=== PATIENT | male | born 1940 | race Caucasian/White ===

== ENCOUNTER 2016-08-26 11:23 | Emergency (ER) | payer MEDICARE ==
--- NOTE | 2016-08-26 13:13 | UC ---
Shortness of Breath HPI - HPI Summary HPI Summary: PT HAS HAD CHRONIC COUGH FOR 2-3 YEARS. PAST FEW WEEKS IT HAS GOTTEN WORSE. LAST NIGHT FELT SLIGHTLY SOB AND HOME O2 MONITOR SAID 91%. CALLED CUSTOMER SERVICE SALES CONSULTANT WHO ADVISED TO GO TO ER. PT DID NOT WANT TO GO. CAME HERE TODAY INSTEAD. HAS APPT WITH CUSTOMER SERVICE SALES CONSULTANT (DR. ORELLANA) THIS AFTERNOON. DENIES FEVER OR RECENT ILLNESS. - History of Current Complaint Chief Complaint: UCRespiratory Stated Complaint: COUGH Time Seen by Provider: 08/26/16 12:43 Hx Obtained From: Patient Onset/Duration: Gradual Onset, Lasting Weeks, Still Present Timing: Constant Current Severity: Moderate Dyspnea At: Exertion Alleviating Factors: Nothing Associated Signs & Symptoms: Positive: Cough (Nonproductive). Negative: Wheezing, Chest Pain w/Cough, Fever, Chills, Diaphoresis, Nasal Congestion, Dizzy, Calf Pain/Swelling, Edema - Allergy/Home Medications Allergies/Adverse Reactions: Allergies Allergy/AdvReac Type Severity Reaction Status Date / Time Prochlorperazine Allergy Severe Agitation Verified 08/26/16 11:49 [From Compazine] Amoxicillin Allergy Rash Verified 08/26/16 11:49 PMH/Surg Hx/FS Hx/Imm Hx Cardiovascular History Of: Denies: Cardiac Disorders, Hypertension Respiratory History Of: Reports: Asthma, Bronchitis Denies: COPD GI/ History Of: Reports: Gastroesophageal Reflux Neurological History Of: Reports: Migraine - Surgical History Surgical History: None Surgery Procedure, Year, and Place: pt denies - Family History Family History: CHRONIC BRONCHIAL COUGH - MOM - Social History Alcohol Use: None Substance Use Type: None Smoking Status (MU): Never Smoked Tobacco - Immunization History Most Recent Influenza Vaccination: utd Most Recent Tetanus Shot: utd Most Recent Pneumonia Vaccination: utd Review of Systems Constitutional: Negative Respiratory: Shortness Of Breath, Cough Cardiovascular: Negative Gastrointestinal: Negative All Other Systems Reviewed And Are Negative: Yes Physical Exam Triage Information Reviewed: Yes Appearance: Well-Appearing, No Pain Distress, Well-Nourished Vital Signs: Initial Vital Signs Temp 98.9 F 08/26/16 11:33 Pulse 80 08/26/16 11:33 Resp 18 08/26/16 11:33 BP 142/76 08/26/16 11:33 Pulse Ox 100 08/26/16 11:33 Vital Signs Reviewed: Yes Eyes: Positive: Conjunctiva Clear ENT: Positive: Hearing grossly normal Neck: Positive: Supple, Nontender, No Lymphadenopathy Respiratory: Positive: Lungs clear, No respiratory distress, No accessory muscle use, Decreased breath sounds - MILDLY DECREASED DIFFUSELY, Other: - PERSISTENT DRY COUGH Cardiovascular Exam: Normal Abdomen Description: Positive: Soft Musculoskeletal: Positive: No Edema Neurological: Positive: Alert Psychological: Positive: Age Appropriate Behavior Skin: Negative: rashes Diagnostics - Radiology CXR Xray Interpretation: No Acute Changes Radiology Interpretation Completed By: Radiologist Shortness of Breath Dx - Differential Dx/Diagnosis Provider Diagnoses: CHRONIC COUGH Discharge - Discharge Plan Condition: Stable Disposition: HOME Patient Education Materials: Chronic Cough (ED) Referrals: Jones Howard MD [Primary Care Provider] - If Needed Zaida Orellana MD [Medical Doctor] - (KEEP YOUR APPT TODAY AT 3:20PM) Additional Instructions: YOUR CHEST XRAY TODAY WAS UNREMARKABLE. YOUR OXYGEN SATURATION WAS 100%. KEEP YOUR FOLLOW-UP APPT WITH YOUR CUSTOMER SERVICE SALES CONSULTANT DR. ORELLANA TODAY AT 3:20PM.
--- NOTE | 2016-08-26 13:38 | RAD ---
HISTORY: Chronic cough COMPARISONS: August 08, 2016 VIEWS: 2: Frontal dual-energy and lateral views of the chest. FINDINGS: CARDIOMEDIASTINAL SILHOUETTE: The cardiomediastinal silhouette is normal. RENATO: The renato are normal. PLEURA: The costophrenic angles are sharp. No pleural abnormalities are noted. LUNG PARENCHYMA: There is hyperinflation with flattening of the diaphragm and expansion of the AP diameter of the chest. ABDOMEN: The upper abdomen is clear. There is no subphrenic gas. BONES AND SOFT TISSUES: Degenerative changes are noted along the spine OTHER: None. IMPRESSION: NO ACTIVE CARDIOPULMONARY DISEASE.
[2016-08-26 13:53] VITALS: BP 160/90
== END 2016-08-26 13:50 | disposition home or self-care (01) ==
LOC: UCEAST 11:23
DX: R05 Cough (principal); J45.909 Unspecified asthma, uncomplicated; K21.9 Gastro-esophageal reflux disease without esophagitis; G43.909 Migraine, unspecified, not intractable, without status migrainosus; Z88.3 Allergy status to other anti-infective agents; Z87.09 Personal history of other diseases of the respiratory system
CPT/HCPCS: 71020; 99211; G0463

== ENCOUNTER 2016-08-29 09:03 | Emergency (ER) | payer MEDICARE ==
[2016-08-29 10:15] LABS: Hematocrit 39 % (42-52); Mean Corpuscular HGB Conc 33 g/dl (31-36); Mean Corpuscular Hemoglobin 30 pg (27-31); Mean Corpuscular Volume 90 fL (80-94); Mean Platelet Volume 7 um3 (7.4-10.4); Red Cell Distribution Width 13 % (10.5-15); White Blood Count 7.6 10^3/ul (3.5-10.8)
--- NOTE | 2016-08-29 10:41 | RAD ---
INDICATION: Cough and syncope. COMPARISON: Comparison is made with a prior study from August 26, 2016. TECHNIQUE: A portable view of the chest was obtained. FINDINGS: Cardiac and mediastinal contours appear to be within normal limits. The lungs are clear. No pleural effusion is seen. IMPRESSION: NO EVIDENCE FOR ACUTE DISEASE.
[2016-08-29] MEDS ORDERED: NS 0.9% 1000 ML* 1,000 ML IV ONE (10:52)
[2016-08-29 10:58] LABS: Urine Bilirubin Negative (Negative); Urine Glucose Negative (Negative); Urine Nitrite Negative (Negative)
[2016-08-29 12:03] VITALS: BP 149/79
[2016-08-29 12:20] LABS: Albumin 3.6 g/dL (3.2-5.2); BUN/Creatinine Ratio 11.8 (8-20); Calcium 9.3 mg/dL (8.6-10.3); EGFR African American 51.3 (>60); EGFR Non-African American 39.9 (>60); Globulin 3.1 g/dL (2-4); Potassium 3.9 mmol/L (3.5-5.0); Total Bilirubin 0.6 mg/dL (0.2-1.0); Total Protein 6.7 g/dL (6.4-8.9)
[2016-08-29] MEDS ORDERED: Iodixanol* (CONTRAST) 320 MG/ML 100 ML SDV IV ONE (12:28)
--- NOTE | 2016-08-29 13:04 | RAD ---
INDICATION: Syncope and cough. COMPARISON: There are no prior studies available for comparison. TECHNIQUE: Contiguous axial sections of the brain were obtained from the skull base to the vertex without contrast. FINDINGS: The ventricles, cisterns and sulci are enlarged consistent with age-related atrophy. There are small areas of decreased density in the subcortical and periventricular white matter suggestive of mild chronic small vessel ischemic changes. No other focal abnormality or mass effect is seen. There is no evidence for hemorrhage. No significant focal osseous abnormality is seen. The visualized portion of the paranasal sinuses and mastoid air cells appear clear. IMPRESSION: NO EVIDENCE FOR GROSS ACUTE INFARCT, MASS EFFECT OR HEMORRHAGE.
--- NOTE | 2016-08-29 13:12 | RAD ---
INDICATION: Chest pain. Short of breath. Evaluate for pulmonary embolus. COMPARISON: None TECHNIQUE: Axial source images were obtained from the thoracic inlet to the hemidiaphragms following administration of [address] angiographic technique was utilized. Coronal and sagittal reconstructed images were acquired. CHEST FINDINGS: Neck/thyroid: The visualized neck to include the thyroid appear normal. Chest wall: There are no acute abnormalities of the bony thorax or chest wall. There is no left seventh rib fracture. There is no supraclavicular, infraclavicular, or axillary lymphadenopathy. Lungs : There are several tiny, rounded, noncalcified subcentimeter pulmonary parenchymal nodules on the right. These are likely chronic inflammatory foci but can be reevaluated with noncontrast CT follow-up imaging in 6 months to assess for stability.. The pulmonary interstitium appears normal. There are no endobronchial lesions. Cardiomediastinal structures: There is no CT evidence of acute pulmonary embolic disease. The heart is normal in size. There is no pericardial effusion. There is no evidence of aortic aneurysm or dissection. There is uncoiling with ectasia of the thoracic aorta. There is no mediastinal or hilar adenopathy. The esophagus appears normal. Pleura : There are no pleural-based masses or effusions. Other: None. IMPRESSION: NO CT EVIDENCE OF ACUTE PULMONARY EMBOLIC DISEASE. SUSPECT RIGHT-SIDED CHRONIC INFLAMMATORY FOCI. SUGGEST FOLLOW-UP OUTLINED ABOVE.
--- NOTE | 2016-08-29 16:48 | ED ---
Isaiah Malhotra Billy, scribed for Jonah Rowell MD on 08/29/16 at 1042 . Syncope/Near Syncope - HPI Summary HPI Summary: Patient is a 76 year-old male coming to [facility] with his presenting with two syncopal episodes earlier this morning at 0200 and 0400. Patient does not recall if he was lightheaded or dizzy immediately prior to the syncopal episodes. Denies any chest pain or shortness of breath. Denies incontinence or tongue-biting. Patient hit the left eyebrow on the floor after the first syncopal episode but he denies any headache at this time. Denies any incidence of weakness or slurred speech. In fact, he states that he feels completely normal other than a "chronic allergy cough." He recently started new medication for the cough, as prescribed by his rn sane. He reports that he had been coughing before the first syncopal episode and believes that the syncope may have been brought on by the cough. Denies any prior syncopal episodes. Denies any recent illness. - History Of Current Complaint Chief Complaint: EDSyncope Time Seen by Provider: 08/29/16 10:29 Hx Obtained From: Patient Onset/Duration: Sudden Onset Context: Unwitnessed Activity At Onset: At Rest - standing Associated Head Trauma: Yes Aggravating Factor(s): Nothing Alleviating Factor(s): Spontaneous Resolution - Allergies/Home Medications Allergies/Adverse Reactions: Allergies Allergy/AdvReac Type Severity Reaction Status Date / Time Prochlorperazine Allergy Severe Agitation Verified 08/26/16 11:49 [From Compazine] Amoxicillin Allergy Rash Verified 08/26/16 11:49 PMH/Surg Hx/FS Hx/Imm Hx Endocrine/Hematology History: Denies: Hx Diabetes Cardiovascular History: Reports: Other Cardiovascular Problems/Disorders - MITROVALVE REGUR Denies: Hx Atrial Fibrillation, Hx Hypertension Respiratory History: Reports: Hx Asthma - DAILY INHALERS/NEBULIZER NEEDED Denies: Hx Chronic Obstructive Pulmonary Disease (COPD), Other Respiratory Problems/Disorders Neurological History: Reports: Hx Migraine - Cancer History Cancer Type, Location and Year: pt denies - Surgical History Surgery Procedure, Year, and Place: pt denies Infectious Disease History: Denies: Hx Clostridium Difficile, Hx Hepatitis, Hx Human Immunodeficiency Virus (HIV), Hx of Known/Suspected MRSA, Hx Shingles, Hx Tuberculosis, Hx Known/ Suspected VRE, Hx Known/Suspected VRSA, History Other Infectious Disease, Traveled Outside the [place] in Last 30 Days - Family History Known Family History: Positive: Respiratory Disease - CHRONIC BRONCHIAL COUGH - MOM - Social History Alcohol Use: None Substance Use Type: Reports: None Hx Tobacco Use: Yes Smoking Status (MU): Former Smoker - smoked for a few years as a teenager Review of Systems Negative: Palpitations, Chest Pain Positive: Cough. Negative: Shortness Of Breath Negative: incontinence Positive: Syncope. Negative: Weakness, Paresthesia, Numbness All Other Systems Reviewed And Are Negative: Yes Physical Exam - Summary Physical Exam Summary: The patient is well-nourished in no acute distress and in no acute pain. The skin is warm and dry and skin color reflects adequate perfusion. There is a small, superficial laceration above the left orbit. HEENT: The pupils are equal and reactive. The conjunctivae are clear and without drainage. Nares are patent and without drainage. Mouth reveals moist mucous membranes and the throat is without erythema and exudate. The external ears are intact. The ear canals are patent and without drainage. The tympanic membranes are intact. Neck is supple with full range of motion and non-tender. There are no carotid bruits. There is no neck vein distension. Respiratory: Chest is non-tender. Lungs are clear to auscultation and breath sounds are symmetrical and equal. Cardiovascular: Hear is regular rate and rhythm. There is no murmur or rub auscultated. There is no peripheral edema and pulses are symmetrical and equal. Abdomen: The abdomen is soft and non-tender. There are normal bowel sounds heard in all four quadrants and there is no organomegaly palpated. Musculoskeletal: There is no back pain noted. Extremities are non-tender with full range of motion. There is good capillary refill. There is no peripheral edema or calf tenderness elicited. Neurological: Patient is alert and oriented to person, place and time. The patient has symmetrical motor strength in all four extremities. No facial droop. Cranial nerves are grossly intact. Deep tendon reflexes are symmetrical and equal in all four extremities. Psychiatric: The patient has an appropriate affect and does not exhibit any anxiety or depression. Triage Information Reviewed: Yes Vital Signs On Initial Exam: Initial Vitals Temp Pulse Resp BP 97.2 F 65 16 137/75 08/29/16 09:07 08/29/16 09:07 08/29/16 09:07 08/29/16 09:07 Vital Signs Reviewed: Yes - [place] Coma Scale Coma Scale Total: 15 Diagnostics - Vital Signs Vital Signs Temp Pulse Resp BP Pulse Ox 08/29/16 10:00 71 13 97 08/29/16 09:21 81 15 98 08/29/16 09:20 79 14 98 08/29/16 09:07 97.2 F 65 16 137/75 - Laboratory Lab Results: Lab Results 08/29/16 08/29/16 Range/Units 09:25 09:25 WBC 7.6 (3.5-10.8) 10^3/ul RBC 4.30 (4.0-5.4) 10^6/ul Hgb 13.0 L (14.0-18.0) g/dl Hct 39 L (42-52) % MCV 90 (80-94) fL MCH 30 (27-31) pg MCHC 33 (31-36) g/dl RDW 13 (10.5-15) % Plt Count 201 (150-450) 10^3/ul MPV 7 L (7.4-10.4) um3 Neut % (Auto) 56.6 (38-83) % Lymph % (Auto) 32.5 (25-47) % [place] % (Auto) 8.5 (1-9) % Eos % (Auto) 2.0 (0-6) % Baso % (Auto) 0.4 (0-2) % Absolute Neuts (auto) 4.3 (1.5-7.7) 10^3/ul Absolute Lymphs (auto) 2.5 (1.0-4.8) 10^3/ul Absolute Monos (auto) 0.6 (0-0.8) 10^3/ul Absolute Eos (auto) 0.1 (0-0.6) 10^3/ul Absolute Basos (auto) 0 (0-0.2) 10^3/ul Absolute Nucleated RBC 0 10^3/ul Nucleated RBC % 0 Magnesium 2.0 (1.9-2.7) mg/dL Total Creatine Kinase 153 (10-223) U/L CK-MB (CK-2) 4.6 (0.6-6.3) ng/mL Troponin I 0.00 (<0.04) ng/mL Result Diagrams: 08/29/16 09:25 08/29/16 09:25 Lab Statement: Any lab studies that have been ordered have been reviewed, and results considered in the medical decision making process. - Radiology CXR Xray Interpretation: No Acute Changes Radiology Interpretation Completed By: Radiologist - CT brain CT Interpretation: No Acute Changes CT Interpretation Completed By: Radiologist CTA chest CT Interpretation Completed By: Radiologist - NO CT EVIDENCE OF ACUTE PULMONARY EMBOLIC DISEASE. SUSPECT RIGHT-SIDED CHRONIC INFLAMMATORY FOCI. SUGGEST FOLLOW- UP OUTLINED ABOVE. - EKG 0913 Cardiac Rate: NL - 82 bpm EKG Rhythm: Sinus Rhythm ST Segment: Non-Specific EKG Interpretation: NSR 82 bpm, normal axis, questional Q-waves in III and aVF Re-Evaluation - Re-Evaluation First Eval Re-Evaluation Time: 13:40 Comment: Labs and imaging reviewed. Patient wishes to be discharged. Course/Dx Assessment/Plan: 76 y/o male to the ED for evaluation of syncope. In the ED course, patient was hydrated with IV fluids. CXR, CT of the brain, and CTA of the neck were all read as negative for acute findings by radiology. Labs reviewed, Hgb of 13, Hct of 39. These findings were reviewed and discussed with the patient, who was [place] to stay [place] [facility] [place]. He will be discharged home to follow up with PCP and Dr. Brown (GI), and he was advised to keep his appointment with his purchasing intern Dr. Mcdowell. He will be given prescriptions of tessalon and robitussin for his cough. - Diagnoses Differential Diagnosis/HQI/PQRI: Positive: Coronary Artery Disease, Dysrhythmia , Hypovolemia, Myocardial Infarction, Vasovagal Episode Provider Diagnoses: Anemia, Syncope, Chronic cough Discharge - Discharge Plan Condition: Stable Disposition: HOME Prescriptions: Benzonatate CAP* [Tessalon 100 MG CAP*] 100 mg PO TID #30 cap guaiFENesin/CODIEN 100MG-10MG* [Robitussin AC 100Mg-10Mg*] 10 ml PO Q4H PRN # 120 udc MDD 60 ml PRN Reason: cough Patient Education Materials: Anemia (ED), Chronic Cough (ED), Syncope (ED) Referrals: Jones Howard MD [Primary Care Provider] - Naman Brown MD [Medical Doctor] - Additional Instructions: FOLLOW UP WITH DR. MCDOWELL SCHEDULED. ADDITIONALLY, FOLLOW UP WITH YOUR PRIMARY CARE PROVIDER WELL DR. BROWN (GASTROENTEROLOGY). The documentation as recorded by the Isaiah weldon Billy accurately reflects the service I personally performed and the decisions made by me, Jonah Rowell MD.
== END 2016-08-29 14:17 | disposition home or self-care (01) ==
LOC: ED 09:03
DX: R42 Dizziness and giddiness (principal); D64.9 Anemia, unspecified; R05 Cough; R55 Syncope and collapse; Z87.891 Personal history of nicotine dependence
CPT/HCPCS: 36415; 70450; 71010; 71275; 80053; 81003; 82550; 82553; 83735; 84484; 85025; 93005; 99283; Q9967

== ENCOUNTER 2016-11-19 19:10 | Emergency (ER) | payer MEDICARE ==
[2016-11-19 19:18] VITALS: BP 106/67
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
== END 2016-11-19 19:35 | disposition home or self-care (01) ==
LOC: UCEAST 19:10
DX: S50.361A Insect bite (nonvenomous) of right elbow, initial encounter (principal); W57.XXXA Bitten or stung by nonvenomous insect and other nonvenomous arthropods, initial encounter; Y93.9 Activity, unspecified; Y92.9 Unspecified place or not applicable; J45.909 Unspecified asthma, uncomplicated; Z88.1 Allergy status to other antibiotic agents; Z87.891 Personal history of nicotine dependence
CPT/HCPCS: 99212; G0463

== ENCOUNTER 2017-08-06 18:45 | Emergency (ER) | payer MEDICARE ==
[2017-08-06 19:05] VITALS: BP 118/76
[2017-08-06] MEDS ORDERED: Tetan/Diph/Pertus SYR(Tdap)* 0.5 ML SYR(BOOSTRIX) use SYR IM ONE (19:12)
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
== END 2017-08-06 19:26 | disposition home or self-care (01) ==
LOC: UCEAST 18:45
DX: S50.811A Abrasion of right forearm, initial encounter (principal); W55.03XA Scratched by cat, initial encounter; Y93.9 Activity, unspecified; Y92.9 Unspecified place or not applicable; Z23 Encounter for immunization; I34.0 Nonrheumatic mitral (valve) insufficiency; J45.909 Unspecified asthma, uncomplicated; G43.909 Migraine, unspecified, not intractable, without status migrainosus; Z88.1 Allergy status to other antibiotic agents; Z87.891 Personal history of nicotine dependence
CPT/HCPCS: 90471; 90715; 99212; G0463

== ENCOUNTER 2017-08-17 09:20 | Emergency (ER) | payer MEDICARE ==
[2017-08-17 09:31] VITALS: BP 137/69
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
== END 2017-08-17 10:17 | disposition home or self-care (01) ==
LOC: UCEAST 09:20
DX: H61.22 Impacted cerumen, left ear (principal); Z88.3 Allergy status to other anti-infective agents; Z88.8 Allergy status to other drugs, medicaments and biological substances
CPT/HCPCS: 99212; G0463

== ENCOUNTER → 2018-02-18 07:47 | Emergency (ER) | payer MEDICARE ==
[~2018-02-18 07:47] MED LIST: HYDROcodone/ACETAMIN 5-325 MG* 1 TAB PO ONE
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
[2018-02-18 08:32] LABS: ABS Basophils 0.1 10^3/ul (0-0.2); ABS Eosinophils 0.4 10^3/ul (0-0.6); ABS Lymphocytes 1.6 10^3/ul (1.0-4.8); ABS Monocytes 0.4 10^3/ul (0-0.8); ABS Neutrophils 3.9 10^3/ul (1.5-7.7); ABS Nucleated RBC 0 10^3/ul; Eosinophil % 5.6 % (0-6); Hematocrit 40 % (42-52); Hemoglobin 13.6 g/dl (14.0-18.0); Lymphocyte % 25.4 % (25-47); Mean Corpuscular HGB Conc 34 g/dl (31-36); Mean Corpuscular Hemoglobin 31 pg (27-31); Mean Corpuscular Volume 90 fL (80-94); Mean Platelet Volume 6.8 um3 (7.4-10.4); Nucleated Red Blood Cells % 0.1; Platelet Count 210 10^3/ul (150-450); Red Blood Count 4.45 10^6/ul (4.00-5.40); Red Cell Distribution Width 13 % (10.5-15); White Blood Count 6.4 10^3/ul (3.5-10.8)
[2018-02-18 08:48] LABS: EGFR Non-African American 48.2 (>60)
[2018-02-18 08:51] VITALS: BP 153/81
--- OUTSIDE RECORDS SUMMARY | 2018-02-18 08:55 | XMS REPORT ---
:1940 External Reference #:[id number] Author Organization [facility] Address [address] [place] [address] Phone [phone] Care Team Providers Name Role Phone Jones Howard M.D. Care Team Information Intelligence Engineer Unavailable Jones Howard M.D. Primary Care Physician Unavailable Payers Type Date Identification Numbers Payment Provider Subscriber Commercial Effective: Policy Number: [id number] / Of LYLE Chaidez 2012 PayID: [id number] [address] [address] [place] [address] Problems Date Description Provider Status Onset: 08/25/2013 Cough Zaida Stout M.D. Active Onset: 08/25/2013 Allergic rhinitis Zaida Stout M.D. Active Onset: 08/25/2013 Allergic rhinitis Zaida Stout M.D. Active Onset: 08/25/2013 Extrinsic asthma without status Zaida Stout M.D. Active asthmaticus Onset: 09/05/2016 Uncomplicated moderate persistent Zaida Stout M.D. Active asthma Onset: 08/08/2016 Allergic rhinitis due to pollen Zaida Stout M.D. 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 Home Environment Does not have an air conditioner Home Environment Stairs are present Home Environment Finished Basement partially Home Environment Negative For The basement is moldy Home Environment The basement is dry Home Environment Negative For Musty Basement Home Environment Cotton Comforter Home Environment Mattress is 2 years old Home Environment Regular Mattress Home Environment Pillows are polyester Home Environment Mattress is encased in an allergy proof case Home Environment Pillows are encased in an allergy proof case Home Environment Does not use a dehumidifier Home Environment There are draperies in the home Home Environment The home is not nate Home Environment The floors are wood Home Environment Payne Heat Home Environment The floors are carpeted Home Environment [place] Home Environment Water Source: Well Smoke-Free Home is smoke-free Pets 1 cat Pets Negative For Animals sleep in bedroom 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 4 days Albuterol Sulfate 01/22 Active Nebulizer (2.5mg/3M 75ml 1 neb J30.1 L) 0.083% inhalation Pieretti, every 4 M.D. hours as needed Montelukast 12/17 Active Tablets 10mg 30tab 1 tab by J30.1 Alanis s mouth every Arnie, night at [employer] bedtime Albuterol Sulfate 08/26 Active Nebulizer (2.5mg/3M 75ml 1 neb R05 Susan L) 0.083% inhalation Fan-Jam every 4 zane, hours as [employer] needed Astepro 05/12 Active Solution 0.15% 30uni 2 Alanis ts intranasal Arnie, every day [employer] Omeprazole 12/08 Active Capsules 20mg 30cap [address] aleman by mouth Argelia, everyday, M.D. at least 30 minutes prior to 1st meal of the day. Levocetirizine 07/10 Active Tablets 5mg 30tab Take 1 J30.9 Alanis Dihydrochloride /2014 s Tablet By Arnie, Mouth AT [facility]- Bedtime as Needed Patada12/25 Active Solution 0.2% 1unit Instill One Zaida s Drop In Pieretti, Both Eyes M.D. once daily as Needed Tylenol PM Extra Active Tablets 500-25mg Unknown Strength Ventolin HFA Active Aerosol 108(90Bas 8gm 2 puffs Susan e) inhalation Fan-Jam mcg/Act every 4 zane, hours [employer] Flunisolide Active Solution 25mcg/Act 25ml 2 sprays in Zaida (0.025%) each Pieretti, nostril M.D. daily Ranitidine HCL Active Tablets 150mg 1 by mouth twice a day Metoprolol Active Tablets ER 50mg Unknown Succinate ER 24HR Lasix Active Tablets 20mg Unknown Atorvastatin Active Tablets 20mg Unknown Calcium Symbicort Active Aerosol 80-4.5mcg Kheti, / /Act Dayna Spangler Medications Administered in Office Medication Date Status Form Strength Qnty SIG Indications Ordering Provider Injection 08/22/19 Administered Injection Allergy 17 Injection Injection 08/16/19 Administered Injection Allergy 17 Injection Injection 08/07/19 Administered Injection Allergy 17 Injection Injection 07/31/19 Administered Injection Allergy 17 Injection Injection 07/24/19 Administered Injection Allergy 17 Injection Injection 07/17/19 Administered Injection Allergy 17 Injection Injection 07/03/19 Administered Injection Allergy 17 Injection Injection 06/23/19 Administered Injection Allergy 17 Injection Injection 06/19/19 Administered Injection Allergy 17 Injection Injection 06/12/19 Administered Injection Allergy 17 Injection Injection 06/04/19 Administered Injection Allergy 17 Injection Injection 05/30/20 Administered Injection Allergy 16 Injection Injection 05/22/20 Administered Injection Allergy 16 Injection Injection 05/16/20 Administered Injection Allergy 16 Injection Injection 05/08/20 Administered Injection Allergy 16 Injection Injection 04/28/20 Administered Injection Allergy 16 Injection Injection 04/21/20 Administered Injection Allergy 16 Injection Injection 04/16/20 Administered Injection Allergy 16 Injection Injection 04/09/20 Administered Injection Allergy 16 Injection Injection 03/31/20 Administered Injection Allergy 16 Injection Injection 03/24/20 Administered Injection Allergy 16 Injection Injection 03/17/20 Administered Injection Allergy 16 Injection Injection 03/14/20 Administered Injection Allergy 16 Injection Immunizations CPT Code Status Date Vaccine Lot # 64374 Given 03/01/2014 Influenza Vaccine 36090 Given 01/30/2014 Influenza Vaccine 91880 Given 01/30/2013 Influenza Vaccine 75917 Given 06/01/2011 Pneumococcal Vaccine 93967 Given 05/01/2009 Pneumococcal Vaccine 11674 Given Unknown Pneumococcal Vaccine 48148 Given Unknown Pneumococcal Vaccine 74118 Given Unknown Influenza Vaccine 55756 Given Unknown Influenza Vaccine 69739 Given Unknown Influenza Vaccine Vital Signs Date Vital Result Comment 01/22/2018 Height 67 inches 5'7" patient stated Weight 170.00 lb Weight in kg's 77.112 Respiratory Rate 20 /min Heart Rate 65 /min O2 % BldC Oximetry 97 % BP Systolic 124 mmHg BP Diastolic 69 mmHg Asthma Control Test 20 BMI (Body Mass Index) 26.6 kg/m2 12/17/2017 Height 67 inches 5'7" patient stated Weight 168.00 lb Weight in kg's 76.205 Respiratory Rate 20 /min Heart Rate 65 /min Body Temperature 97.3 F O2 % BldC Oximetry 96 % BP Systolic 121 mmHg BP Diastolic 71 mmHg Asthma Control Test 15 BMI (Body Mass Index) 26.3 kg/m2 09/29/2017 Height 67 inches 5'7" patient stated Weight 165.00 lb Weight in kg's 74.844 Respiratory Rate 18 /min Heart Rate 64 /min O2 % BldC Oximetry 96 % BP Systolic 126 mmHg BP Diastolic 74 mmHg Asthma Control Test 24 BMI (Body Mass Index) 25.8 kg/m2 06/02/2017 Height 67 inches 5'7" patient stated Weight 166.00 lb Weight in kg's 75.298 Respiratory Rate 20 /min Heart Rate 70 /min O2 % BldC Oximetry 95 % BP Systolic 124 mmHg BP Diastolic 75 mmHg Asthma Control Test 24 BMI (Body Mass Index) 26.0 kg/m2 02/27/2017 Height 65.75 inches 5'5.75" Weight 167.00 lb Weight in kg's 75.751 Respiratory Rate 20 /min Heart Rate 60 /min O2 % BldC Oximetry 96 % BP Systolic 123 mmHg BP Diastolic 77 mmHg Asthma Control Test 22 BMI (Body Mass Index) 27.2 kg/m2 11/14/2016 Height 65.75 inches 5'5.75" Weight 163.00 lb Weight in kg's 73.937 Respiratory Rate 16 /min Heart Rate 64 /min O2 % BldC Oximetry 98 % BP Systolic 134 mmHg BP Diastolic 78 mmHg Asthma Control Test 22 BMI (Body Mass Index) 26.5 kg/m2 09/05/2016 Height 65.75 inches 5'5.75" Weight 165.00 lb Weight in kg's 74.844 Respiratory Rate 20 /min Heart Rate 75 /min O2 % BldC Oximetry 97 % BP Systolic 130 mmHg BP Diastolic 78 mmHg BMI (Body Mass Index) 26.8 kg/m2 08/26/2016 Height 65.75 inches 5'5.75" Weight 164.00 lb Weight in kg's 74.390 Respiratory Rate 20 /min Heart Rate 72 /min Body Temperature 97.8 F O2 % BldC Oximetry 97 % BP Systolic 144 mmHg BP Diastolic 86 mmHg BMI (Body Mass Index) 26.7 kg/m2 08/15/2016 Height 65.75 inches 5'5.75" Weight 165.00 lb Weight in kg's 74.844 Respiratory Rate 16 /min Heart Rate 59 /min O2 % BldC Oximetry 98 % BP Systolic 144 mmHg BP Diastolic 87 mmHg BMI (Body Mass Index) 26.8 kg/m2 08/08/2016 Height 65.75 inches 5'5.75" Weight 165.00 lb Weight in kg's 74.844 Respiratory Rate 18 /min Heart Rate 63 /min O2 % BldC Oximetry 97 % BP Systolic 140 mmHg BP Diastolic 80 mmHg BMI (Body Mass Index) 26.8 kg/m2 03/07/2016 Height 65.75 inches 5'5.75" Weight 167.00 lb Weight in kg's 75.751 Respiratory Rate 20 /min Heart Rate 72 /min O2 % BldC Oximetry 98 % BP Systolic 134 mmHg BP Diastolic 84 mmHg BMI (Body Mass Index) 27.2 kg/m2 02/26/2016 Height 65.75 inches 5'5.75" Weight 167.00 lb Weight in kg's 75.751 Respiratory Rate 16 /min Heart Rate 66 /min O2 % BldC Oximetry 98 % BP Systolic 133 mmHg BP Diastolic 83 mmHg BMI (Body Mass Index) 27.2 kg/m2 07/03/2015 Height 65.75 inches 5'5.75" Weight 167.00 lb Weight in kg's 75.751 Respiratory Rate 18 /min Heart Rate 68 /min O2 % BldC Oximetry 97 % BP Systolic 146 mmHg BP Diastolic 91 mmHg BMI (Body Mass Index) 27.2 kg/m2 05/18/2015 Height 65.75 inches 5'5.75" Weight 168.00 lb Weight in kg's 76.205 Respiratory Rate 16 /min Heart Rate 67 /min O2 % BldC Oximetry 98 % BP Systolic 152 mmHg BP Diastolic 86 mmHg BMI (Body Mass Index) 27.3 kg/m2 12/08/2014 Height 66 inches 5'6" Weight 169.00 lb Weight in kg's 76.658 Respiratory Rate 16 /min Heart Rate 57 /min O2 % BldC Oximetry 97 % BP Systolic 129 mmHg BP Diastolic 79 mmHg BMI (Body Mass Index) 27.3 kg/m2 06/06/2014 Height 66 inches 5'6" Weight 167.00 lb Weight in kg's 75.751 Respiratory Rate 16 /min Heart Rate 64 /min O2 % BldC Oximetry 96 % BP Systolic 120 mmHg BP Diastolic 78 mmHg BMI (Body Mass Index) 27.0 kg/m2 05/16/2014 Height 66 inches 5'6" Weight 165.00 lb Weight in kg's 74.844 Respiratory Rate 16 /min Heart Rate 54 /min O2 % BldC Oximetry 98 % BP Systolic 130 mmHg BP Diastolic 90 mmHg BMI (Body Mass Index) 26.6 kg/m2 03/20/2014 Height 66.25 inches 5'6.25" Weight 161.00 lb Weight in kg's 73.030 Respiratory Rate 18 /min Heart Rate 90 /min O2 % BldC Oximetry 97 % BP Systolic 124 mmHg BP Diastolic 82 mmHg BMI (Body Mass Index) 25.8 kg/m2 03/17/2014 Height 66.25 inches 5'6.25" Weight 161.00 lb Weight in kg's 73.030 Respiratory Rate 18 /min Heart Rate 71 /min O2 % BldC Oximetry 97 % BP Systolic 130 mmHg BP Diastolic 82 mmHg BMI (Body Mass Index) 25.8 kg/m2 02/17/2014 Height 66.25 inches 5'6.25" Weight 165.00 lb Weight in kg's 74.844 Respiratory Rate 16 /min Heart Rate 61 /min O2 % BldC Oximetry 98 % BP Systolic 130 mmHg BP Diastolic 78 mmHg BMI (Body Mass Index) 26.4 kg/m2 11/04/2013 Height 66.25 inches 5'6.25" Weight 166.00 lb Weight in kg's 75.298 Respiratory Rate 18 /min Heart Rate 61 /min O2 % BldC Oximetry 97 % BP Systolic 126 mmHg BP Diastolic 74 mmHg BMI (Body Mass Index) 26.6 kg/m2 05/06/2013 Height 65.75 inches 5'5.75" Weight 168.00 lb Weight in kg's 76.205 Respiratory Rate 16 /min Heart Rate 55 /min O2 % BldC Oximetry 99 % BP Systolic 126 mmHg BP Diastolic 60 mmHg BMI (Body Mass Index) 27.3 kg/m2 04/06/2013 Height 66 inches 5'6" Weight 165.00 lb Weight in kg's 74.844 Heart Rate 62 /min O2 % BldC Oximetry 98 % BP Systolic 122 mmHg BP Diastolic 58 mmHg BMI (Body Mass Index) 26.6 kg/m2 Results Description No Information Procedures Date CPT Code Description Status 01/22/2018 69804 Ippb Completed 01/22/2018 35763 Pre PFT Completed 12/17/2017 80817 Pre PFT Completed 09/29/2017 62425 Pre PFT Completed 06/02/2017 23697 Pre PFT Completed 02/27/2017 94971 Pre PFT Completed 11/14/2016 79187 Pre PFT Completed 09/05/2016 43946 Pre PFT Completed 08/26/2016 37444 Pulmonary Function Test Completed 08/21/2016 34967 Injection Completed 08/15/2016 70627 Injection Completed 08/08/2016 39188 Ippb Completed 08/06/2016 88377 Injection Completed 07/30/2016 16527 Injection Completed 07/24/2016 04244 Injection Completed 07/17/2016 24450 Injection Completed 07/03/2016 02811 Injection Completed 06/23/2016 11488 Injection Completed 06/19/2016 82664 Injection Completed 06/12/2016 33234 Injection Completed 06/04/2016 06907 Injection Completed 05/30/2016 08713 Injection Completed 05/22/2016 02348 Injection Completed 05/16/2016 83588 Injection Completed 05/08/2016 52819 Injection Completed 04/28/2016 47502 Injection Completed 04/21/2016 40419 Injection Completed 04/16/2016 14762 Injection Completed 04/09/2016 15445 Injection Completed 03/31/2016 69902 Injection Completed 03/24/2016 41556 Injection Completed 03/17/2016 58130 Injection Completed 03/14/2016 79104 Injection Completed 03/12/2016 49860 Extract 1-10 Completed 03/07/2016 55724 Skin Test Scratch # Of Units ____ Completed 05/18/2015 68991 Pre PFT Completed 11/04/2013 42636 Pre PFT Completed 05/06/2013 08199 Oxygen Level - Pulse Oximiter Completed 04/06/2013 40750 Oxygen Level - Pulse Oximiter Completed 04/06/2013 95019 Pulmonary Function Test Completed 10/03/2011 73866 Pulmonary Function Test Completed Encounters Type Date Location Provider CPT E/M Dx Office Visit 01/22/2018 8:40a Merrick Stout M.D. 93306 J30.1 J30.2 J45.40 R05 Office Visit 12/17/2017 3:20p Merrick Stout M.D. 91738 J30.1 J30.2 J45.40 R05 Office Visit 09/29/2017 11:00a [place] [facility] Zaida Stout M.D. 26643 J30.1 J30.2 J45.40 R05 Office Visit 06/02/2017 11:00a [place] [facility] Zaida Stout M.D. 14698 J30.1 J30.2 J45.40 R05 Office Visit 02/27/2017 11:20a Merrick Stotu M.D. 09739 J30.1 J30.2 J45.40 R05 Office Visit 11/14/2016 4:00p Merrick Stout M.D. 11858 J30.1 J30.2 J45.40 Z68.26 Office Visit 09/05/2016 3:00p Merrick Stout M.D. 67919 J30.1 J30.2 J45.40 R05 Office Visit 08/26/2016 3:00p [place] [facility] Zaida Stout M.D. 02504 R05 J30.1 J30.2 J30.89 Z68.26 Office Visit 08/15/2016 10:40a Merrick Stout M.D. 71819 J30.2 J30.1 J30.89 R05 Office Visit 08/08/2016 11:20a Merrick Stout M.D. 92290 J30.1 J30.2 J30.89 R05 Office Visit 03/07/2016 3:40p [place] Zaida Stout M.D. 59717 J30.89 R05 Office Visit 02/26/2016 11:40a [place] [facility] Zaida Stout M.D. 70610 J30.89 R05 Office Visit 07/03/2015 5:20p [place] [facility] Zaida Stout M.D. 86588 R05 J30.89 Office Visit 05/18/2015 4:20p Merrick Stout M.D. 70298 R05 J30.89 Office Visit 12/08/2014 11:00a [place] Zaida Stout M.D. 02079 477.9 477.8 493.00 V85.23 Office Visit 06/06/2014 5:00p [place] [facility] Zaida Stout M.D. 48526 477.9 477.8 786.2 Office Visit 05/16/2014 11:40a [place] [facility] Zaida Stout M.D. 17795 477.9 477.8 786.2 Office Visit 02/17/2014 11:40a [place] Zaida Stout M.D. 08447 786.2 477.8 477.9 493.00 Office Visit 11/04/2013 11:20a Merrick Stout M.D. 41979 786.2 477.8 477.9 Office Visit 05/06/2013 1:20p Merrick Stout M.D. 08894 786.2 477.8 477.9 Office Visit 04/06/2013 11:00a [place] [facility] Zaida Stout M.D. 58071 786.2 477.8 Office Visit 05/07/2012 4:20p Merrick Stout M.D. 53750 477.9 786.2 493.00 Office Visit 12/26/2011 9:40a [place] Zaida Stout M.D. 66686 477.9 786.2 493.00 Office Visit 11/28/2011 3:20p [place] Zaida Stout M.D. 54628 786.2 Office Visit 10/24/2011 11:40a [place] Zaida Stout M.D. 18226 786.2 Office Visit 10/03/2011 10:00a [place] Zaida Stout M.D. 56620 786.2 493.90 Plan of Care Future Appointment(s):01/29/2018 11:20 am - Zaida Stout M.D. at [facility]/2017 11:40 am - Za[facility] at [facility]01/22/2018 - Zaida Stout M.D.J30.1 Allergic rhinitis due to dhfmkmQ08.2 Other seasonal allergic rpopisnsZ31.40 Moderate persistent asthma, [id number] CoughNew Medication:Prednisone 5 mgAlbuterol Sulfate (2.5 mg/3ML) 0.083%Referral :Lamberto Bhandari MD,Follow up:1 week, CHECK-UP/FOLLOW UP VISIT: Continued management of patient's medical care, sooner if neededRecommendations:Refrain from wearing perfumes/scented colognes while visiting our office. Albuterol/ Atrovent x 1 now- and continue to use Albuterol every hour as needed (Alb/ Atrovent in office pt felt was quite helpful) Prednisone 40 mg po x 1 now, then 40 mg daily x 4 additional days continue Astepro at bedtime and Flonase sensimist - 2 sprays to each nostril once daily continue Omeprazole and Ranitidine continue Xyzal continue Singulair daily-PFT reviewed continue Symbicort 160/4.5 2 puffs twice daily; rinse mouth after use Use Albuterol 2 puffs every 4 hours as needed for cough, shortness of breath or chest tightness ; call if using >2x/week aside from pre-exercise. continue follow-up with pulmonary, cardiology, nephrology, ENT and GI
--- OUTSIDE RECORDS SUMMARY | 2018-02-18 08:55 | XMS REPORT ---
:1940 External Reference #:[id number] Author Organization [facility] 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 Payers Type Date Identification Numbers Payment Provider Subscriber Commercial Policy Number: [id number] [employer] Wolf Chaidez PayID: [id number] [address] [address] [place] [address] Problems Description No Information Family History Date Family Member(s) Problem(s) Comments Father Heart Disease Father Hypertension Mother Bronchitis Mother Headache Mother Migraine Social History Type Date Description Comments Marital Status Home Environment Lives With 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 Cigarette Use Former Cigarette Smoker ETOH Use Denies alcohol use Smoking Patient is a former smoker 2-3 years - age 19, 20 Recreational Drug Use Denies Drug Use Daily Caffeine Consumes on average 1 cup of regular coffee per day Exercise Type/Frequency Exercises sporadically Allergies, Adverse Reactions, Alerts Date Description Reaction Status Severity Comments 09/15/2016 Amoxicillin active 09/15/2016 Compazine active Medications Medication Date Status Form Strength Qnty SIG Indications Ordering Provider Symbicort 12/07/ Active Aerosol 80-4.5mcg 10.20 inhale two [place], 2018 /Act 0gm puffs by MD Aníbal mouth twice a day. rinse mouth after use Levocetirizine / Active Tablets 5mg 1 tab by Unknown Dihydrochloride 0000 mouth every day Azalastine / Active [place] 1 spray in Unknown 0000 each nostril daily. Flunisolide / Active Solution 25mcg/Act 1 spray Unknown 0000 (0.025%) each nostril daily. Albuterol Sulfate / Active Nebulizer (2.5mg/3M nebulized Unknown 0000 L) 0.083% every 6 hours as needed Omeprazole / Active Capsules 40mg 1 by mouth Unknown [address] every day Atenolol / Hx Tablets 25mg 1/2 by Unknown 0000 mouth every other day Spiriva Respimat / Hx Aerosol 1.25mcg/A take 2 Unknown 0000 - ct puffs once . 2016 Symbicort / Hx Aerosol 80-4.5mcg 2 puff Unknown 0000 - /Act twice a 2017 Montelukast / Hx Tablets 10mg 1 by mouth Unknown Sodium 0000 - every day 2017 Vital Signs Date Vital Result Comment 02/03/2018 BP Systolic Sitting Left Arm 118 mmHg BP Diastolic Sitting Left Arm 65 mmHg Heart Rate 66 /min Respiratory Rate 16 /min Height 68 inches 5'8" Weight 166.00 lb BMI (Body Mass Index) 25.2 kg/m2 BSA (Body Surface Area) 1.89 m2 Forbes body weight in kilograms 70 O2 % BldC Oximetry 96 % 06/09/2017 BP Systolic Sitting Left Arm 118 mmHg BP Diastolic Sitting Left Arm 76 mmHg Heart Rate 54 /min Respiratory Rate 14 /min Height 68 inches 5'8" Weight 170.00 lb BMI (Body Mass Index) 25.8 kg/m2 BSA (Body Surface Area) 1.91 m2 Forbes body weight in kilograms 70 03/19/2017 BP Systolic Sitting Left Arm 122 mmHg BP Diastolic Sitting Left Arm 76 mmHg Heart Rate 65 /min Respiratory Rate 16 /min Height 68 inches 5'8" Weight 168.00 lb BMI (Body Mass Index) 25.5 kg/m2 BSA (Body Surface Area) 1.90 m2 Forbes body weight in kilograms 70 O2 % BldC Oximetry 96 % Room air 10/02/2016 BP Systolic Sitting Right Arm 140 mmHg BP Diastolic Sitting Right Arm 82 mmHg Heart Rate 72 /min reg Height 68 inches 5'8" Weight 166.00 lb BMI (Body Mass Index) 25.2 kg/m2 BSA (Body Surface Area) 1.89 m2 Forbes body weight in kilograms 70 O2 % BldC Oximetry 95 % ra Results Description No Information Procedures Date CPT Code Description Status 03/27/2017 51563 Bronchospasm Provocation Evaluation Multi Spirometric Completed Determinati 03/27/2017 57587 Spirometry Completed Encounters Type Date Location Provider CPT E/M Dx Office Visit 06/09/2017 2:45p [place] [address] J41.0 D38.1 K21.9 J30.89 Office Visit 03/19/2017 2:00p [place] [address] D38.1 J41.0 K21.9 J30.89 Office Visit 10/02/2016 3:30p [place]monology [place] [address] J41.0 J30.89 K21.9 D38.1 Plan of Care Future Appointment(s):05/05/2018 2:45 pm - Aníbal Arora MD at [facility]/05 /2018 - Aníbal Arora MDJ45.40 Moderate persistent asthma, uncomplicatedComments :He is using Symbicort 160-4.5 mcg 2 puffs twice a day. This has originally worsened his cough but now seems to be helping. He is using albuterol in the evening "as a preventative measure". I asked him to stop this and only is it if he actually has symptoms. Advised to carry rescue albuterol inhaler atall times.Follow up:3 rhkqvaY99.89 Other allergic rhinitisComments:Continue with Azalastine, Flunisolide, and Levocetirizine. Symptoms remain controlled.K21.9 Gastro-esophageal reflux disease without esophagitisComments:Asymptomatic. Continue omeprazole.
--- OUTSIDE RECORDS SUMMARY | 2018-02-18 08:55 | XMS REPORT ---
:1940 External Reference #:[id number] Author Organization [facility] Address [address] [place] [address] Phone [phone] Care Team Providers Name Role Phone Jones Howard M.D. Care Team Information Javascript Front End Developer Unavailable Jones Howard M.D. Primary Care Physician Unavailable Payers Type Date Identification Numbers Payment Provider Subscriber Commercial Effective: Policy Number: [id number] / Of LYLE Chaidez 2012 PayID: [id number] [address] [address] [place] [address] Problems Date Description Provider Status Onset: 08/25/2013 [...] Spouse Home Environment Does not use air fitter up Home Environment Does not have an air [...] Environment The floors are wood Home Environment [place] Home Environment The floors are carpeted Home Environment [place] Home Environment Water Source: Well Smoke-Free Home is smoke-free Pets 1 cat Pets Negative For Animals sleep in bedroom 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 Albuterol 01/22 Active Nebulizer (2.5mg/3M 75ml 1 neb J30.1 Sulfate L) 0.083% inhalation Argelia, every 4 M.D. hours as needed Montelukast 12/17 Active Tablets 10mg 30tab 1 tab by J30.1 Alanis Sodium s mouth every Arnie, night at [facility] bedtime Astepro 05/12 Active Solution 0.15% 30uni 2 intranasal Alanis /2015 ts every day Arnie, [facility] Omeprazole 12/08 Active Capsules 20mg 30cap [address] love Stout, everyday, at M.D. least 30 minutes prior to 1st meal of the day. Levocetirizine 12/08 Active Tablets 5mg 30tab Take 1 J30.9 Alanis Dihydrochloride /2014 s Tablet By Arnie Mouth AT [facility] Bedtime as Needed Pataday 12/25 Active Solution 0.2% 1unit Instill One Zaida s Drop In Both Pieretti, Eyes once M.D. daily as Needed Tylenol PM Extra Active Tablets 500-25mg Unknown Strength Ventolin HFA Active Aerosol 108(90Bas 8gm 2 puffs Susan e) inhalation Fan-Jam mcg/Act every 4 zane, hours [facility]-C Flunisolide Active Solution 25mcg/Act 25ml 2 sprays in [facility] (0.025%) each nostril Pieretti, daily M.D. Ranitidine HCL Active Tablets 150mg 1 by mouth twice a day Metoprolol Active Tablets ER 50mg Unknown Succinate ER 24HR Lasix Active Tablets 20mg Unknown Atorvastatin Active Tablets 20mg Unknown Calcium Symbicort Active Aerosol 80-4.5mcg Kheti, /0000 /Act Dayna Spangler Symbicort Active Aerosol 160-4.5mc 2 Unknown g/Act inhalations am&pm Medications Administered in Office Medication Date Status [...] CPT Code Status Date Vaccine Lot # 28836 Given 03/01/2014 Influenza Vaccine 95952 Given 01/30/2014 Influenza Vaccine 74958 Given 01/30/2013 Influenza Vaccine 69770 Given 06/01/2011 Pneumococcal Vaccine 00506 Given 05/01/2009 Pneumococcal Vaccine 56935 Given Unknown Pneumococcal Vaccine 98712 Given Unknown Pneumococcal Vaccine 04223 Given Unknown Influenza Vaccine 62056 Given Unknown Influenza Vaccine 51747 Given Unknown Influenza Vaccine Vital Signs Date Vital Result Comment 01/29/2018 Height 67 inches 5'7" patient stated Weight 170.00 lb Weight in kg's 77.112 Respiratory Rate 20 /min Heart Rate 76 /min O2 % BldC Oximetry 95 % BP Systolic 124 mmHg BP Diastolic 67 mmHg Asthma Control Test 18 BMI (Body Mass Index) 26.6 kg/m2 01/22/2018 Height 67 inches 5'7" patient stated [...] Procedures Date CPT Code Description Status 01/22/2018 81433 Ippb Completed 01/22/2018 33917 Pre PFT Completed 12/17/2017 79426 Pre PFT Completed 09/29/2017 84778 Pre PFT Completed 06/02/2017 87599 Pre PFT Completed 02/27/2017 28679 Pre PFT Completed 11/14/2016 79930 Pre PFT Completed 09/05/2016 50559 Pre PFT Completed 08/26/2016 19623 Pulmonary Function Test Completed 08/21/2016 44193 Injection Completed 08/15/2016 35323 Injection Completed 08/08/2016 19939 Ippb Completed 08/06/2016 32361 Injection Completed 07/30/2016 51292 Injection Completed 07/24/2016 98749 Injection Completed 07/17/2016 20295 Injection Completed 07/03/2016 19631 Injection Completed 06/23/2016 46736 Injection Completed 06/19/2016 16433 Injection Completed 06/12/2016 84627 Injection Completed 06/04/2016 84405 Injection Completed 05/30/2016 86941 Injection Completed 05/22/2016 67645 Injection Completed 05/16/2016 98428 Injection Completed 05/08/2016 11139 Injection Completed 04/28/2016 68788 Injection Completed 04/21/2016 45658 Injection Completed 04/16/2016 73037 Injection Completed 04/09/2016 57441 Injection Completed 03/31/2016 39617 Injection Completed 03/24/2016 51546 Injection Completed 03/17/2016 84135 Injection Completed 03/14/2016 19950 Injection Completed 03/12/2016 53223 Extract 1-10 Completed 03/07/2016 69829 Skin Test Scratch # Of Units ____ Completed 05/18/2015 30766 Pre PFT Completed 11/04/2013 51873 Pre PFT Completed 05/06/2013 20557 Oxygen Level - Pulse Oximiter Completed 04/06/2013 10814 Oxygen Level - Pulse Oximiter Completed 04/06/2013 75561 Pulmonary Function Test Completed 10/03/2011 56873 Pulmonary Function Test Completed Encounters Type Date Location Provider CPT E/M Dx Office Visit 01/29/2018 6:00a Merrick Stout M.D. 12660 J30.2 J45.40 J30.1 Office Visit 01/22/2018 8:40a Merrick Stout M.D. 58995 J30.1 J30.2 J45.40 R05 Office Visit 12/17/2017 3:20p Merrick Stout M.D. 00703 J30.1 J30.2 J45.40 R05 Office Visit 09/29/2017 11:00a [facility] Zaida Stout M.D. 52543 J30.1 J30.2 J45.40 R05 Office Visit 06/02/2017 11:00a [facility] Zaida Stout M.D. 75572 J30.1 J30.2 J45.40 R05 Office Visit 02/27/2017 11:20a Merrick Stout M.D. 75328 J30.1 J30.2 J45.40 R05 Office Visit 11/14/2016 4:00p Merrick Stout M.D. 70722 J30.1 J30.2 J45.40 Z68.26 Office Visit 09/05/2016 3:00p Merrick Stout M.D. 04466 J30.1 J30.2 J45.40 R05 Office Visit 08/26/2016 3:00p [facility] Zaida Stout M.D. 88487 R05 J30.1 J30.2 J30.89 Z68.26 Office Visit 08/15/2016 10:40a Merrick Stout M.D. 56447 J30.2 J30.1 J30.89 R05 Office Visit 08/08/2016 11:20a Merrick Stout M.D. 40115 J30.1 J30.2 J30.89 R05 Office Visit 03/07/2016 3:40p Merrick Stout M.D. 35714 J30.89 R05 Office Visit 02/26/2016 11:40a [facility] Zaida Stout M.D. 15754 J30.89 R05 Office Visit 07/03/2015 5:20p [facility] Zaida Stout M.D. 78023 R05 J30.89 Office Visit 05/18/2015 4:20p Merrick Stout M.D. 38912 R05 J30.89 Office Visit 12/08/2014 11:00a Merrick Stout M.D. 48424 477.9 477.8 493.00 V85.23 Office Visit 06/06/2014 5:00p [facility] Zaida Stout M.D. 54527 477.9 477.8 786.2 Office Visit 05/16/2014 11:40a [facility] Zaida Stout M.D. 26970 477.9 477.8 786.2 Office Visit 02/17/2014 11:40a Merrick Stout M.D. 04349 786.2 477.8 477.9 493.00 Office Visit 11/04/2013 11:20a Merrick Stout M.D. 95021 786.2 477.8 477.9 Office Visit 05/06/2013 1:20p Merrick Stout M.D. 54140 786.2 477.8 477.9 Office Visit 04/06/2013 11:00a [facility] Zaida Stout M.D. 74532 786.2 477.8 Office Visit 05/07/2012 4:20p Merrick Stout M.D. 46527 477.9 786.2 493.00 Office Visit 12/26/2011 9:40a Merrick Stout M.D. 91694 477.9 786.2 493.00 Office Visit 11/28/2011 3:20p Merrick Stout M.D. 56550 786.2 Office Visit 10/24/2011 11:40a Merrick Stout M.D. 88241 786.2 Office Visit 10/03/2011 10:00a Merrick Stout M.D. 20273 786.2 493.90 Plan of Care Future Appointment(s):04/06/2018 11:40 am - Zaida Stout M.D. at [place] Vxoxnl9101/29/2018 - Zaida Stout M.D.J30.2 Other seasonal allergic xhuykelzN76.40 Moderate persistent asthma, [id number] Allergic rhinitis due to pollenNew Medication:Symbicort 160-4.5 mcg/ActFollow up:2-3 months, CHECK-UP/FOLLOW UP VISIT: Continued management of patient's medical care.Recommendations:Refrain from wearing perfumes/scented colognes while visiting our office. s/p prednisone 40 mg po x 5 days continue Astepro at bedtime and Flonase sensimist - 2 sprays to each nostril once daily continue Omeprazole and Ranitidine continue Xyzal continue Singulair daily continue Symbicort - use 160/4.5 2 puffs twice daily; rinse mouth after use Use Albuterol 2 puffs every 4 hours as needed for cough, shortness of breath or chest tightness; call if using >2x/week aside from pre-exercise. continue follow-up with pulmonary, cardiology, nephrology, ENT and GI
--- NOTE | 2018-02-18 09:44 | RAD ---
Indication: LEFT anterior chest pain worse when coughing. Fall on Thursday. Comparison: December 23, 2017 Technique: Dual energy PA chest and 4 view dedicated LEFT unilateral rib series. Report: Nondisplaced fracture of the seventh and eighth ribs posterior laterally. No additional rib fracture evident. Negative for pleural effusion or pneumothorax. Unchanged mild elevation of the RIGHT hemidiaphragm. Resulting leftward displacement of the mediastinum without change. Negative for cardiomegaly. Unremarkable central pulmonary vasculature. IMPRESSION: #. Nondisplaced fracture of the seventh and eighth ribs posterior laterally. No additional rib fracture evident. Negative for pleural effusion or pneumothorax.
== END | disposition home or self-care (01) ==
LOC: ED 07:47
DX: S22.42XA Multiple fractures of ribs, left side, initial encounter for closed fracture (principal); I50.9 Heart failure, unspecified; I25.10 Atherosclerotic heart disease of native coronary artery without angina pectoris; W16.012A Fall into swimming pool striking water surface causing other injury, initial encounter; Y92.89 Other specified places as the place of occurrence of the external cause
CPT/HCPCS: 36415; 80053; 83605; 84484; 85025; 93005; 99283